=== PATIENT | male | born 1965 | race Caucasian/White ===

== ENCOUNTER 2020-04-18 10:15 | Emergency (ER) | payer SELFPAY ==
[~2020-04-18] VITALS: Ht 177.8 cm; Wt 60.6 kg
--- NOTE | 2020-04-18 10:34 | NUR ---
TASK RN NOTE: PT SITTING UP IN BED, CHANGED INTO GOWN. NAD NOTED AT THIS TIME. PLACED ON BP, SPO2 AND MEDICAL SPECIALIST. PT DENIES PAIN AT THIS TIME. AWAITING ORDERS.
[2020-04-18 11:25] LABS: BASOPHILS % (AUTO) 1 % (0-1); EOSINOPHILS % (AUTO) 1 % (1-7); LYMPHOCYTES % (AUTO) 19 % (22-44); MEAN CORPUSCULAR HEMOGLOBIN 36.1 pg (27.5-34.5); MEAN CORPUSCULAR HGB CONC 34.7 g/dL (33.2-36.2); MEAN PLATELET VOLUME 9.3 fL (7.4-10.4); MONOCYTES % (AUTO) 9 % (2-9); NEUTROPHILS % (AUTO) 69 % (42-75); PLATELET COUNT 185 x10^3/uL (130-400); RED BLOOD COUNT 4.74 x10^6/uL (4.38-5.82)
[2020-04-18 11:32] LABS: ALBUMIN 3.9 g/dL (3.4-5.0); ANION GAP 7 mmol/L (5-15); CALCIUM 8.9 mg/dL (8.5-10.1); CHLORIDE 109 mmol/L (98-107); CREATININE 0.85 mg/dL (0.7-1.3)
[2020-04-18 11:36] LABS: TROPONIN I < 0.015 ng/mL (0.000-0.045)
[2020-04-18 11:52] LABS: MD NO
[2020-04-18 12:32] VITALS: BP 165/99
== END 2020-04-18 12:34 | disposition home or self-care (01) ==
LOC: ED 10:33
DX: I10 Essential (primary) hypertension (principal); R51.9 Headache, unspecified; H53.8 Other visual disturbances; R94.31 Abnormal electrocardiogram [ECG] [EKG]
CPT/HCPCS: 36415; 71045; 80048; 82040; 84484; 85025; 93005; 99285